=== PATIENT | male | born 1975 | race Caucasian/White ===

== ENCOUNTER → 2017-03-19 | Outpatient (CLI) | payer OTHER ==
--- NOTE | 2017-03-20 00:07 | MR ---
EXAMINATION TYPE: MR neck wo/w con DATE OF EXAM: 03/19/2017 COMPARISON: NONE HISTORY: Throat Swelling, Lymphadenopathy of head and neck CONTRAST: Standard multiplanar, multisequence MRI departmental protocol utilizing 7.5 mL intravenous Gadavist g adolinium contrast. FINDINGS: Parotid glands are symmetric. Submandibular salivary glands are symmetric. Epiglottis appea rs normal. The subglottic trachea appears normal. There is no evidence of a pharyngeal mass. The tong ue appears normal. The paranasal sinuses appear normal. There is no sign of orbital mass. Prevertebral soft tissues are not enlarged. The thyroid gland is fairly symmetric. I see no cervical adenopathy. There is normal flow void in the carotid arteries and jugular veins. There is posterior left-sided cervical disc herniation at C6-7. There is no spinal stenosis. There is small posterior central C5-6 cervical disc herniation. There is no cervical paraspinal mass. IMPRESSION: There are mild cervical disc herniations in the lower cervical spine. No evidence of cervical adenopa thy.
== END | disposition home or self-care (01) ==
LOC: RADMRIMAIN 19:55
PROVIDERS: ATTEND Internal Medicine
DX: M50.222 Other cervical disc displacement at C5-C6 level (principal); R59.1 Generalized enlarged lymph nodes
CPT/HCPCS: 70543; A9581

== ENCOUNTER 2018-11-26 09:48 | Emergency (ER) | payer OTHER ==
[2018-11-26 10:00] VITALS: TEMP 97.7
[2018-11-26] MEDS ORDERED: methylPREDNISolone SOD SUCCI 125 MG/2 ML VIAL IV STA (10:17)
[2018-11-26] MEDS ORDERED: SODIUM CHLORIDE 0.9% 1,000 ML IV ONE (10:17)
[2018-11-26] MEDS ORDERED: KETOROLAC 30 MG/ML 1 ML VIAL IVP STA (10:17)
[2018-11-26] MEDS ORDERED: SODIUM CHLORIDE 0.9% 500 ML 500 ML IV ONE (10:17)
[2018-11-26] MEDS ORDERED: ONDANSETRON 4 MG/2 ML VIAL IVP STA (10:17)
--- NOTE | 2018-11-26 10:38 | ED ---
Extremity Problem HPI - General Chief complaint: Extremity Problem,Nontraumatic Stated complaint: confusion, gout Time Seen by Provider: 11/26/18 10:09 Source: patient, RN notes reviewed Mode of arrival: wheelchair Limitations: no limitations - History of Present Illness Initial comments: This a 43-year-old male presents emergency Department chief complaint of severe right foot pain. Patient states that he was seen by Dr. Wagoner yesterday he had an injection of Kenalog and lidocaine. Patient states that he's having worsening pain today. Patient called physician recommended come emergency department. Patient states she is also seen for this a week or 2 ago at [facility] which had lab work does not know the results. Patient states that they told was probably rheumatoid arthritis though Dr. Briggs diagnosed him with gout. Patient was also started on colchicine yesterday. Patient's taken 0.6 mg daily. Patient denies any trauma to his foot. Patient states symptoms have been going to his knees and bilateral feet but have now settled down to the right first digit. Patient states it's worst pain is ever had. - Related Data Home Medications Medication Instructions Recorded Confirmed Colchicine [Colcrys] 0.6 mg PO BID 11/26/18 11/26/18 Loratadine [Claritin] 10 mg PO DAILY 11/26/18 11/26/18 Naproxen [Naprosyn] 500 mg PO Q12HR PRN 11/26/18 11/26/18 Omeprazole 20 mg PO DAILY 11/26/18 11/26/18 Previous Rx's Medication Instructions Recorded Hydrocodone/Acetaminophen [Prince 1 tab PO Q6HR PRN #10 tab 11/26/18 5-325] Indomethacin [Indocin] 50 mg PO TID #30 capsule 11/26/18 Allergies Allergy/AdvReac Type Severity Reaction Status Date / Time codeine AdvReac Intermediate Itching Verified 11/26/18 10:07 Review of Systems ROS Statement: Those systems with pertinent positive or pertinent negative responses have been documented in the HPI. ROS Other: All systems not noted in ROS Statement are negative. Past Medical History Past Medical History: Chest Pain / Angina, GERD/Reflux Additional Past Medical History / Comment(s): blood in stools with abdominal pain,constipation, lower back pain,fell on ladder hurt rt shoulder and wrist on 01-04-15.steroids with last 3 mos. Immune disorder. History of Any Multi-Drug Resistant Organisms: None Reported Past Surgical History: No Surgical Hx Reported Past Anesthesia/Blood Transfusion Reactions: Motion Sickness Additional Past Anesthesia/Blood Transfusion Reaction / Comment(s): never has had general anesthesia Smoking Status: Current every day smoker Past Alcohol Use History: None Reported Past Drug Use History: None Reported - Past Family History Father Family Medical History: Cancer, Hypertension Additional Family Medical History / Comment(s): colon- at age 63,hea rt problems Mother Family Medical History: Diabetes Mellitus, Hypertension Additional Family Medical History / Comment(s): sarcoidosis General Exam Limitations: no limitations General appearance: alert, in no apparent distress Head exam: Present: atraumatic, normocephalic, normal inspection Neck exam: Present: normal inspection. Absent: tenderness, meningismus, lymphadenopathy Respiratory exam: Present: normal lung sounds bilaterally. Absent: respiratory distress, wheezes, rales, rhonchi, stridor Cardiovascular Exam: Present: regular rate, normal rhythm, normal heart sounds. Absent: systolic murmur, diastolic murmur, rubs, gallop, clicks Extremities exam: Present: other (Right foot first MTP there is erythema, swelling and severe tenderness with palpation, feet are neurovascular intact with equal pedal pulses) Skin exam: Present: warm, dry, intact, normal color. Absent: rash Course Vital Signs 11/26/18 09:57 Temperature 97.7 F Pulse Rate 73 Respiratory 16 Rate Blood Pressure 154/95 O2 Sat by Pulse 99 Oximetry Medical Decision Making - Medical Decision Making 43-year-old male presented for foot pain. Patient has been diagnosed with gout. Symptoms are consistent with gout. Patient was sent here to rule out infection. Patient had lab work, x-ray. Patient is improved after Toradol and prednisone. Patient continue colchicine - Lab Data Result diagrams: 11/26/18 10:49 11/26/18 10:49 Lab Results 11/26/18 11/26/18 Range/Units 10:49 10:49 WBC 7.1 (3.8-10.6) k/uL RBC 4.69 (4.30-5.90) m/uL Hgb 13.8 (13.0-17.5) gm/dL Hct 41.3 (39.0-53.0) % MCV 88.1 (80.0-100.0) fL MCH 29.4 (25.0-35.0) pg MCHC 33.3 (31.0-37.0) g/dL RDW 13.3 (11.5-15.5) % Plt Count 131 L (150-450) k/uL Neutrophils % 75 % Lymphocytes % 15 % Monocytes % 5 % Eosinophils % 3 % Basophils % 0 % Neutrophils # 5.3 (1.3-7.7) k/uL Lymphocytes # 1.1 (1.0-4.8) k/uL Monocytes # 0.4 (0-1.0) k/uL Eosinophils # 0.2 (0-0.7) k/uL Basophils # 0.0 (0-0.2) k/uL Sodium 142 (137-145) mmol/L Potassium 4.2 (3.5-5.1) mmol/L Chloride 108 H (98-107) mmol/L Carbon Dioxide 27 (22-30) mmol/L Anion Gap 7 mmol/L BUN 12 (9-20) mg/dL Creatinine 0.85 (0.66-1.25) mg/dL Est GFR (CKD-EPI)AfAm >90 (>60 ml/min/1.73 sqM) Est GFR (CKD-EPI)NonAf >90 (>60 ml/min/1.73 sqM) Glucose 100 H (74-99) mg/dL Uric Acid 7.8 (3.5-8.5) mg/dL Calcium 9.7 (8.4-10.2) mg/dL Total Bilirubin 0.4 (0.2-1.3) mg/dL AST 32 (17-59) U/L ALT 26 (21-72) U/L Alkaline Phosphatase 82 (38-126) U/L C-Reactive Protein 5.7 (<10.0) mg/L Total Protein 6.9 (6.3-8.2) g/dL Albumin 4.4 (3.5-5.0) g/dL Disposition Clinical Impression: Gout Disposition: HOME SELF-CARE Condition: Stable Instructions (If sedation given, give patient instructions): Low Purine Diet (ED), Gout (ED) Additional Instructions: Please return to the Emergency Department if symptoms worsen or any other concerns. Prescriptions: Indomethacin [Indocin] 50 mg PO TID #30 capsule Hydrocodone/Acetaminophen [Prince 5-325] 1 tab PO Q6HR PRN #10 tab PRN Reason: Pain Is patient prescribed a controlled substance at d/c from ED?: Yes When asked, does pt state using other controlled substances?: No If prescribed controlled substance>3 days was MAPS reviewed?: Prescribed <3 Days If opioid is for acute pain is fill amount 7 days or less?: Yes If Rx opioid, was Start Talking consent form obtained?: Yes Referrals: None,Stated [Primary Care Provider] - 1-2 days Time of Disposition: 12:37
--- NOTE | 2018-11-26 11:11 | XR ---
Right foot HISTORY: Pain 3 views the right foot Bone mineralization, joint spaces and alignment are maintained. No fracture or dislocation. Small diego ntar calcaneal spur, enthesophyte at the insertion of the Achilles tendon. Mild spurring at the tibio talar joint. IMPRESSION: Nonspecific findings described above. No acute abnormality evident.
[2018-11-26 11:12] LABS: Basophils % (A) 0 %; Eosinophils # (A) 0.2 k/uL (0-0.7); Eosinophils % (A) 3 %; HCT 41.3 % (39.0-53.0); HGB 13.8 gm/dL (13.0-17.5); Lymphocytes # (A) 1.1 k/uL (1.0-4.8); Lymphocytes % (A) 15 %; MCH 29.4 pg (25.0-35.0); MCHC 33.3 g/dL (31.0-37.0); MCV 88.1 fL (80.0-100.0); Mean Platelet Volume 7.7; Monocytes # (A) 0.4 k/uL (0-1.0); Monocytes % (A) 5 %; Neutrophils # (A) 5.3 k/uL (1.3-7.7); Neutrophils % (A) 75 %; Platelet Count 131 k/uL (150-450); RBC 4.69 m/uL (4.30-5.90); RDW 13.3 % (11.5-15.5); WBC 7.1 k/uL (3.8-10.6)
[2018-11-26 11:25] LABS: ALT 26 U/L (21-72); AST 32 U/L (17-59); Albumin 4.4 g/dL (3.5-5.0); Alkaline Phosphatase 82 U/L (38-126); Anion Gap 7 mmol/L; Blood Urea Nitrogen 12 mg/dL (9-20); C Reactive Protein 5.7 mg/L (<10.0); Calcium 9.7 mg/dL (8.4-10.2); Carbon Dioxide 27 mmol/L (22-30); Chloride 108 mmol/L (98-107); Glucose 100 mg/dL (74-99); Potassium 4.2 mmol/L (3.5-5.1); Sodium 142 mmol/L (137-145); Total Bilirubin 0.4 mg/dL (0.2-1.3); Total Protein 6.9 g/dL (6.3-8.2); Uric Acid 7.8 mg/dL (3.5-8.5)
[2018-11-26 12:44] LABS: Erythrocyte Sedimentation Rate 8 mm/hr (0-15)
[2018-11-26 13:10] VITALS: BP 130/82; PULSE 60; RESP 18
== END 2018-11-26 13:10 | disposition home or self-care (01) ==
LOC: EC 09:48
DX: M10.9 Gout, unspecified (principal); I20.9 Angina pectoris, unspecified; K21.9 Gastro-esophageal reflux disease without esophagitis; F17.200 Nicotine dependence, unspecified, uncomplicated; Z79.899 Other long term (current) drug therapy; Z88.5 Allergy status to narcotic agent
CPT/HCPCS: 36415; 80053; 84550; 85025; 85652; 86140; 96361; 96374; 96375; 99284

== ENCOUNTER 2019-05-08 13:45 | Emergency (ER) | payer OTHER ==
[2019-05-08 14:00] VITALS: BP 136/95; TEMP 98.4
[2019-05-08] MEDS ORDERED: NITROGLYCERIN OINT 1 INCH/GM PACKET TOPICAL STA (14:01)
[2019-05-08] MEDS ORDERED: ASPIRIN 81 MG PO STA (14:01)
--- NOTE | 2019-05-08 14:04 | ED ---
General Adult HPI - General Chief complaint: Chest Pain Stated complaint: Chest discomfort Time Seen by Provider: 05/08/19 13:47 Source: patient, RN notes reviewed Mode of arrival: ambulatory Limitations: no limitations - History of Present Illness Initial comments: Patient is a pleasant 44-year-old male presenting to emergency Department with complaints of chest discomfort and dyspnea. Onset of symptoms was a couple of days ago. Patient does have cough that is dry nonproductive. Patient has had chills. Patient states it feels like there is sand paper in his chest. Patient states discomfort is very mild at this time. Discomfort increases with deep breaths. Patient states he does feel somewhat anxious as well. No leg pain or leg swelling. - Related Data Home Medications Medication Instructions Recorded Confirmed Loratadine [Claritin] 10 mg PO DAILY 11/26/18 05/08/19 Omeprazole 20 mg PO Q48H 11/26/18 05/08/19 Allopurinol [Zyloprim] 100 mg PO DAILY 05/08/19 05/08/19 LORazepam [Ativan] 0.5 mg PO DAILY PRN 05/08/19 05/08/19 Allergies Allergy/AdvReac Type Severity Reaction Status Date / Time codeine AdvReac Intermediate Itching Verified 05/08/19 14:56 Review of Systems ROS Statement: Those systems with pertinent positive or pertinent negative responses have been documented in the HPI. ROS Other: All systems not noted in ROS Statement are negative. Constitutional: Reports: as per HPI, chills Eyes: Denies: eye pain Respiratory: Reports: cough, dyspnea Cardiovascular: Reports: chest pain Endocrine: Denies: fatigue Gastrointestinal: Denies: vomiting Genitourinary: Denies: dysuria Musculoskeletal: Denies: back pain Skin: Denies: rash Neurological: Denies: weakness Past Medical History Past Medical History: Chest Pain / Angina, GERD/Reflux Additional Past Medical History / Comment(s): Immune disorder History of Any Multi-Drug Resistant Organisms: None Reported Past Surgical History: No Surgical Hx Reported Past Anesthesia/Blood Transfusion Reactions: Motion Sickness Additional Past Anesthesia/Blood Transfusion Reaction / Comment(s): never has had general anesthesia Past Psychological History: Anxiety Smoking Status: Current every day smoker Past Alcohol Use History: None Reported Past Drug Use History: None Reported - Past Family History Father Family Medical History: Cancer, Hypertension Additional Family Medical History / Comment(s): colon- at age 63,heart problems Mother Family Medical History: Diabetes Mellitus, Hypertension Additional Family Medical History / Comment(s): sarcoidosis General Exam Limitations: no limitations General appearance: alert, in no apparent distress Head exam: Present: normocephalic Eye exam: Present: normal appearance Neck exam: Present: normal inspection Respiratory exam: Present: normal lung sounds bilaterally. Absent: chest wall tenderness Cardiovascular Exam: Present: regular rate, normal rhythm Expanded Peripheral pulses: 2+: Radial (R), Radial (L), Posterior Tibialis (R), Posterior Tibialis (L) GI/Abdominal exam: Present: soft. Absent: tenderness Extremities exam: Present: normal inspection. Absent: pedal edema, calf tenderness Neurological exam: Present: alert Psychiatric exam: Present: normal affect, normal mood Skin exam: Present: normal color Course Vital Signs 05/08/19 05/08/19 05/08/19 13:50 14:00 14:22 Temperature 98.4 F Pulse Rate 77 91 Pulse Rate [ 80 [place] ] Respiratory 18 20 Rate Blood Pressure 136/95 136/95 O2 Sat by Pulse 99 97 Oximetry EKG Findings - EKG Comments: EKG Findings:: Normal sinus rhythm 78. [place] 126. QRS 92. Acute 36. QTc 440. Normal axis. Normal QRS. No acute ST change. Medical Decision Making - Medical Decision Making Patient reevaluated and does feel better. Patient updated on results and plan. Dr. Flores has been paged for admission for hospital call. - Lab Data Result diagrams: 05/08/19 14:14 05/08/19 14:14 Lab Results 05/08/19 05/08/19 05/08/19 Range/Units 14:14 14:14 14:14 WBC 8.8 (3.8-10.6) k/uL RBC 5.01 (4.30-5.90) m/uL Hgb 15.1 (13.0-17.5) gm/dL Hct 43.9 (39.0-53.0) % MCV 87.6 (80.0-100.0) fL MCH 30.2 (25.0-35.0) pg MCHC 34.5 (31.0-37.0) g/dL RDW 12.9 (11.5-15.5) % Plt Count 146 L (150-450) k/uL Neutrophils % 79 % Lymphocytes % 12 % Monocytes % 5 % Eosinophils % 2 % Basophils % 1 % Neutrophils # 6.9 (1.3-7.7) k/uL Lymphocytes # 1.0 (1.0-4.8) k/uL Monocytes # 0.4 (0-1.0) k/uL Eosinophils # 0.2 (0-0.7) k/uL Basophils # 0.0 (0-0.2) k/uL PT 10.6 (9.0-12.0) sec INR 1.0 (<1.2) APTT 23.4 (22.0-30.0) sec D-Dimer <0.17 (<0.60) mg/L FEU Sodium 142 (137-145) mmol/L Potassium 3.9 (3.5-5.1) mmol/L Chloride 108 H (98-107) mmol/L Carbon Dioxide 24 (22-30) mmol/L Anion Gap 10 mmol/L BUN 13 (9-20) mg/dL Creatinine 0.86 (0.66-1.25) mg/dL Est GFR (CKD-EPI)AfAm >90 (>60 ml/min/1.73 sqM) Est GFR (CKD-EPI)NonAf >90 (>60 ml/min/1.73 sqM) Glucose 97 (74-99) mg/dL Calcium 9.6 (8.4-10.2) mg/dL Magnesium 2.0 (1.6-2.3) mg/dL Total Bilirubin 0.8 (0.2-1.3) mg/dL AST 32 (17-59) U/L ALT 29 (21-72) U/L Alkaline Phosphatase 89 (38-126) U/L Creatine Kinase 98 (55-170) U/L Troponin I (0.000-0.034) ng/mL NT-Pro-B Natriuret Pep pg/mL Total Protein 7.6 (6.3-8.2) g/dL Albumin 4.7 (3.5-5.0) g/dL 05/08/19 05/08/19 Range/Units 14:14 14:14 WBC (3.8-10.6) k/uL RBC (4.30-5.90) m/uL Hgb (13.0-17.5) gm/dL Hct (39.0-53.0) % MCV (80.0-100.0) fL MCH (25.0-35.0) pg MCHC (31.0-37.0) g/dL RDW (11.5-15.5) % Plt Count (150-450) k/uL Neutrophils % % Lymphocytes % % Monocytes % % Eosinophils % % Basophils % % Neutrophils # (1.3-7.7) k/uL Lymphocytes # (1.0-4.8) k/uL Monocytes # (0-1.0) k/uL Eosinophils # (0-0.7) k/uL Basophils # (0-0.2) k/uL PT (9.0-12.0) sec INR (<1.2) APTT (22.0-30.0) sec D-Dimer (<0.60) mg/L FEU Sodium (137-145) mmol/L Potassium (3.5-5.1) mmol/L Chloride (98-107) mmol/L Carbon Dioxide (22-30) mmol/L Anion Gap mmol/L BUN (9-20) mg/dL Creatinine (0.66-1.25) mg/dL Est GFR (CKD-EPI)AfAm (>60 ml/min/1.73 sqM) Est GFR (CKD-EPI)NonAf (>60 ml/min/1.73 sqM) Glucose (74-99) mg/dL Calcium (8.4-10.2) mg/dL Magnesium (1.6-2.3) mg/dL Total Bilirubin (0.2-1.3) mg/dL AST (17-59) U/L ALT (21-72) U/L Alkaline Phosphatase (38-126) U/L Creatine Kinase (55-170) U/L Troponin I <0.012 (0.000-0.034) ng/mL NT-Pro-B Natriuret Pep 58 pg/mL Total Protein (6.3-8.2) g/dL Albumin (3.5-5.0) g/dL Disposition Clinical Impression: Chest pain Disposition: ADMITTED IP TO THIS HOSP Is patient prescribed a controlled substance at d/c from ED?: No Referrals: None,Stated [Primary Care Provider] - 1-2 days Decision Time: 15:34
[2019-05-08 14:39] LABS: ALT 29 U/L (21-72); AST 32 U/L (17-59); African American GFR (CKD) >90 (>60 ml/min/1.73 sqM); Albumin 4.7 g/dL (3.5-5.0); Alkaline Phosphatase 89 U/L (38-126); Anion Gap 10 mmol/L; Blood Urea Nitrogen 13 mg/dL (9-20); Calcium 9.6 mg/dL (8.4-10.2); Carbon Dioxide 24 mmol/L (22-30); Chloride 108 mmol/L (98-107); Creatine Kinase 98 U/L (55-170); Glucose 97 mg/dL (74-99); Potassium 3.9 mmol/L (3.5-5.1); Sodium 142 mmol/L (137-145); Total Bilirubin 0.8 mg/dL (0.2-1.3); Total Protein 7.6 g/dL (6.3-8.2)
[2019-05-08 14:48] LABS: Basophils % (A) 1 %; Eosinophils # (A) 0.2 k/uL (0-0.7); Eosinophils % (A) 2 %; HCT 43.9 % (39.0-53.0); HGB 15.1 gm/dL (13.0-17.5); Lymphocytes % (A) 12 %; MCH 30.2 pg (25.0-35.0); MCHC 34.5 g/dL (31.0-37.0); MCV 87.6 fL (80.0-100.0); Mean Platelet Volume 7.1; Monocytes # (A) 0.4 k/uL (0-1.0); Monocytes % (A) 5 %; Neutrophils # (A) 6.9 k/uL (1.3-7.7); Neutrophils % (A) 79 %; Platelet Count 146 k/uL (150-450); RBC 5.01 m/uL (4.30-5.90); RDW 12.9 % (11.5-15.5); WBC 8.8 k/uL (3.8-10.6)
[2019-05-08 14:53] LABS: D-Dimer <0.17 mg/L FEU (<0.60); Partial Thromboplastin Time 23.4 sec (22.0-30.0); Prothrombin Time 10.6 sec (9.0-12.0)
[2019-05-08 15:16] VITALS: PULSE 91; RESP 20
--- NOTE | 2019-05-08 15:20 | XR ---
EXAMINATION TYPE: XR chest 2V DATE OF EXAM: 05/08/2019 COMPARISON: 08/04/2008 HISTORY: Chest pain TECHNIQUE: Frontal and lateral views of the chest are obtained. FINDINGS: There is no focal air space opacity, pleural effusion, or pneumothorax seen. Chronic very mild right hemidiaphragm elevation. The cardiac silhouette size is within normal limits. The osseo us structures are intact. Minimal multilevel degenerative changes of the spine. IMPRESSION: No acute cardiopulmonary process.
[2019-05-08] MEDS ORDERED: NITROGLYCERIN SL TABS 0.4 MG TAB SUBLINGUAL PRN (15:34)
[2019-05-08] MEDS ORDERED: NITROGLYCERIN OINT 1 INCH/GM PACKET TOPICAL SCH (18:00)
[2019-05-09] MEDS ORDERED: ASPIRIN 325 MG TAB PO SCH (09:00)
== END 2019-05-08 15:52 | disposition other institution (70) ==
LOC: EC 13:45 → 1SOBS 15:34 → UNDOADMOB 15:34 → 1SOBS 15:46 → EC 15:52
DX: R07.89 Other chest pain (principal); R06.00 Dyspnea, unspecified; R05 Cough; R68.83 Chills (without fever); K21.9 Gastro-esophageal reflux disease without esophagitis; F41.9 Anxiety disorder, unspecified; F17.200 Nicotine dependence, unspecified, uncomplicated; Z88.5 Allergy status to narcotic agent; Z79.899 Other long term (current) drug therapy; Z82.49 Family history of ischemic heart disease and other diseases of the circulatory system
CPT/HCPCS: 36415; 71046; 80053; 82550; 83735; 83880; 84484; 85025; 85379; 85610; 85730; 93005; 99285

== ENCOUNTER → 2020-12-01 | Outpatient (CLI) | payer OTHER ==
--- NOTE | 2020-12-01 19:44 | MR ---
EXAMINATION TYPE: MR lumbar spine wo con DATE OF EXAM: 12/01/2020 COMPARISON: NONE HISTORY: Low back pain, pt c/o left sided buttock, posterior thigh, and calf pain for several years. TECHNIQUE: Multiplanar, multisequence imaging of the lumbar spine is performed without IV contrast. FINDINGS: Sagittal images of the lumbar spine show vertebral body heights and alignment to appear sat isfactory. Multilevel disc desiccation with relative sparing of L5-S1 level. Disc space heights fairl y well maintained. The conus medullaris is normal in position and signal ending mid L1 level. The donavan ne marrow signal intensity is within normal limits. Axial images show T12-L1 and L1-L2 levels to appear within normal limits. Axial images at L2-L3 level show mild facet arthropathy bilaterally. Spinal canal is preserved. Paten t Bilateral neural foramina. Axial images at L3-L4 level appear within normal limits. Axial images at L4-L5 level show mild broad disc bulge and facet arthropathy bilaterally. Spinal tenisha l is preserved. Patent Bilateral neural foramina. Axial images at L5-S1 level mild facet arthropathy. Spinal canal is preserved. Patent bilateral neura l foramina. Paraspinal muscle bulk is maintained. IMPRESSION: Mild multilevel degenerative changes in lumbar spine as detailed above.
== END | disposition home or self-care (01) ==
LOC: RADMRIMAIN 16:30
PROVIDERS: ATTEND Orthopaedic Surgery
DX: M47.816 Spondylosis without myelopathy or radiculopathy, lumbar region (principal); M51.26 Other intervertebral disc displacement, lumbar region
CPT/HCPCS: 72148